=== PATIENT | male | born 2000 | race Caucasian/White ===

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

== ENCOUNTER 2022-06-02 08:19 | Emergency (ER) | payer SELFPAY ==
[2022-06-02] MEDS ORDERED: Sodium Chloride 0.9% 1000 ML 1,000 ML IV STA (08:29)
[2022-06-02] MEDS ORDERED: Sodium Chloride 0.9% 1000 ML 1,000 ML ONE (08:54)
[2022-06-02 09:00] LABS: Basophil (Absolute #) 0.05 x10^3/uL (0-0.4); Eosinophil % 1.2 % (0.00-5.0); Eosinophil (Absolute #) 0.09 x10^3/uL (0-0.5); Hematocrit 46.4 % (42-50); Lymphocyte (Absolute #) 2.43 x10^3/uL (1.0-4.6); Lymphocytes % 32.2 % (24.0-44.0); Mean Corpuscular Hemoglobin 31.4 pg (26-32); Mean Corpuscular Hgb Concent. 34.5 g/dL (32-36); Mean Platelet Volume 10.7 fL (7.5-11.0); Monocyte (Absolute #) 0.55 x10^3/uL (0.0-1.3); Monocytes % 7.3 % (0.0-12.0); Neutrophil % 58.3 % (36.0-66.0); Platelet Count 198 x10^3/uL (150-450); Red Cell Distribution Width 12.8 % (11.5-14.0); White Blood Count 7.5 x10^3/uL (4.0-10.5)
--- NOTE | 2022-06-02 09:10 | XRAY ---
Indication: Right lower quadrant pain. Multiple contiguous axial images obtained through the abdomen and pelvis without contrast. Comparison: None Lung bases clear. Heart not enlarged. Noncontrasted stomach and bowel loops appear nonobstructed. Appendix not visualized. No free fluid/air. Remaining liver, gallbladder, pancreas, spleen, adrenal glands, kidneys, ureters, bladder, and aorta are unremarkable for noncontrast exam. Osseous structures intact. No ventral or inguinal hernias. Impression: Negative CT abdomen/pelvis without contrast exam.
--- NOTE | 2022-06-02 09:20 | ERPHSYRPT ---
- History of Present Illness Time Seen by Provider: 06/02/22 08:35 Historian: patient Exam Limitations: no limitations Patient Subjective Stated Complaint: C/O right sided abdomen pain that started around 8pm last night. Some nausea that started approx 30 mintues prior to arrival to ED; no vomiting. Triage Nursing Assessment: Patient ambulated back to ED without difficulties. No SOB. Patient is alert and oriented. Physician History: Patient is a 22-year-old male who presents with right lower quadrant abdominal pain. It started approximately 8 PM last night. His a has his appendix. He has had some nausea no vomiting no diarrhea no fever some chills and no sweats. Timing/Duration: yesterday Activities at Onset: none Quality: cramping, stabbing Abdominal Pain Onset Location: RLQ Pain Radiation: no radiation Severity of Pain-Max: mild Severity of Pain-Current: mild Modifying Factors: Improves With: nothing Associated Symptoms: fever/chills, nausea Previous symptoms: no prior history Allergies/Adverse Reactions: No Known Drug Allergies Allergy (Verified 06/02/22 08:28) Home Medications: No Reportable Medications [No Reported Medications] 06/02/22 [History] Hx Tetanus, Diphtheria Vaccination/Date Given: Yes Hx Influenza Vaccination/Date Given: No Hx Pneumococcal Vaccination/Date Given: No Immunizations Up to Date: Yes Travel Risk - International Travel Have you traveled outside of the country in past 3 weeks: No - Coronavirus Screening Are you exhibiting any of the following symptoms?: No Close contact with a COVID-19 positive Pt in past 14-21 Days: No - Vaccine Status Have you recieved a Covid-19 vaccination: No - Review of Systems Constitutional: No Fever, No Chills Eyes: No Symptoms Ears, Nose, & Throat: No Symptoms Respiratory: No Cough, No Dyspnea Cardiac: No Chest Pain, No Edema, No Syncope Abdominal/Gastrointestinal: No Abdominal Pain, No Nausea, No Vomiting, No Diarrhea Genitourinary Symptoms: No Dysuria Musculoskeletal: No Back Pain, No Neck Pain Skin: No Rash Neurological: No Dizziness, No Focal Weakness, No Sensory Changes Psychological: No Symptoms Endocrine: No Symptoms All Other Systems: Reviewed and Negative - Past Medical History Pertinent Past Medical History: Yes Psycho-Social History: Anxiety, Depression - Past Surgical History Past Surgical History: No - Social History Smoking Status: Never smoker Exposure to second hand smoke: No Drug Use: none Patient Lives Alone: No - Nursing Vital Signs Nursing Vital Signs: Initial Vital Signs Temperature 98.5 F 06/02/22 08:31 Pulse Rate 72 06/02/22 08:31 Respiratory Rate 16 06/02/22 08:31 Blood Pressure 154/88 06/02/22 08:31 O2 Sat by Pulse Oximetry 99 06/02/22 08:31 Pain Scale Pain Intensity 2 - Physical Exam General Appearance: mild distress, alert Eye Exam: PERRL/EOMI, eyes nml inspection Ears, Nose, Throat Exam: normal ENT inspection, pharynx normal, moist mucous membranes Neck Exam: normal inspection, non-tender, supple, full range of motion Respiratory Exam: normal breath sounds, lungs clear, No respiratory distress Cardiovascular Exam: regular rate/rhythm, normal heart sounds Gastrointestinal/Abdomen Exam: soft, No tenderness, No mass Back Exam: normal inspection, normal range of motion, No CVA tenderness, No ve rtebral tenderness Extremity Exam: normal inspection, normal range of motion, pelvis stable Neurologic Exam: alert, oriented x 3, cooperative, normal mood/affect, nml cerebellar function, sensation nml, No motor deficits Skin Exam: normal color, warm, dry SpO2: 99 - Course Nursing assessment & vital signs reviewed: Yes - CT Exams Abdomen/Pelvis CT Interpretation: Negative (Radiologist report a negative CT of the abdomen pelvis without contrast.) Ordered Tests: Active Orders 24 hr Category Date Time Status IV Insertion STAT Care 06/02/22 08:29 Active ABDOMEN AND PELVIS W/0 CONTRAS [CT] Stat Exams 06/02/22 08:43 Completed AMYLASE Stat Lab 06/02/22 08:50 Received CBC W DIFF Stat Lab 06/02/22 08:50 Completed LIPASE Stat Lab 06/02/22 08:50 Received Lactic Acid Stat Lab 06/02/22 08:29 Completed UA W/RFX CULTURE Stat Lab 06/02/22 08:39 Received Medication Summary Generic Name Dose Route Start Last Admin Trade Name Freq PRN Reason Stop Dose Admin Sodium Chloride 1,000 mls @ 999 mls/hr 06/02/22 08:29 06/02/22 08:55 Sodium Chloride 0.9% 1000 Ml IV 06/02/22 09:29 999 mls/hr .Q1H1M STA Administration Discontinued Medications Generic Name Dose Route Start Last Admin Trade Name Freq PRN Reason Stop Dose Admin Sodium Chloride Confirm 06/02/22 08:54 Sodium Chloride 0.9% 1000 Ml Administered 06/02/22 08:55 Dose 1,000 mls @ .ROUTE .[facility] ONE Lab/Rad Data: Laboratory Result Diagrams 06/02/22 08:50 Laboratory Results 06/02/22 06/02/22 Range/Units 08:50 08:29 WBC 7.5 (4.0-10.5) x10^3/uL RBC 5.10 (4.1-5.6) x10^6/uL Hgb 16.0 (12.5-18.0) g/dL Hct 46.4 (42-50) % MCV 91.0 (78-100) fL MCH 31.4 (26-32) pg MCHC 34.5 (32-36) g/dL RDW 12.8 (11.5-14.0) % Plt Count 198 (150-450) x10^3/uL MPV 10.7 (7.5-11.0) fL Gran % 58.3 (36.0-66.0) % Immature Gran % (Auto) 0.3 (0.00-0.4) % Nucleat RBC Rel Count 0.0 (0.00-0.1) % Eos # (Auto) 0.09 (0-0.5) x10^3/uL Immature Gran # (Auto) 0.02 (0.00-0.03) x10^3u/L Absolute Lymphs (auto) 2.43 (1.0-4.6) x10^3/uL Absolute Monos (auto) 0.55 (0.0-1.3) x10^3/uL Absolute Nucleated RBC 0.00 (0.00-0.01) x10^3u/L Lymphocytes % 32.2 (24.0-44.0) % Monocytes % 7.3 (0.0-12.0) % Eosinophils % 1.2 (0.00-5.0) % Basophils % 0.7 (0.0-0.4) % Absolute Granulocytes 4.40 (1.4-6.9) x10^3/uL Basophils # 0.05 (0-0.4) x10^3/uL Lactic Acid 0.9 (0.4-2.0) - Progress Progress: unchanged - Departure Departure Disposition: Home Clinical Impression: Abdominal pain Condition: Stable Critical Care Time: No Referrals: DOCTOR,NO FAMILY [Primary Care Provider] - Follow up/PCP as directed Instructions: Severe Abdominal Pain, Adult (DC)
[2022-06-02 09:28] LABS: Appearance CLEAR (CLEAR); Bilirubin NEGATIVE (NEGATIVE); Dipstick done @ ? MAIN LAB; Glucose NEGATIVE (NEGATIVE); Ketones NEGATIVE (NEGATIVE); Nitrite NEGATIVE (NEGATIVE); Protein,Urine Dip NEGATIVE (Negative); RBC NEGATIVE Ery/ul (0-5); Urobilinogen NORMAL mg/dL (0-1)
[2022-06-02 09:29] LABS: ISTAT CREA 1.1 mg/dL (0.6-1.3); ISTAT K 3.2 mmol/L (3.5-4.9)
[2022-06-02 09:36] VITALS: BP 125/77; PULSE 67; O2SAT 100
[2022-06-02 09:58] LABS: RBC NONE SEEN /HPF (0-2); WBC NONE SEEN /HPF (0-5)
[2022-06-02 09:59] LABS: Bacteria NONE SEEN /HPF (NEGATIVE); Urine Cultured Indicated? NO
[2022-06-02 14:09] LABS: AMYLASE 63 U/L (30-110); LIPASE 69 U/L (23-300)
== END 2022-06-02 09:40 | disposition home or self-care (01) ==
LOC: ED 08:19
DX: R10.31 Right lower quadrant pain (principal); Z28.310 Unvaccinated for COVID-19
CPT/HCPCS: 36000; 36415; 74176; 80047; 81015; 82150; 83605; 83690; 85025; 99283